=== PATIENT | female | born 1940 | race Caucasian/White ===

== ENCOUNTER → 2021-10-24 | Outpatient (CLI) | payer OTHER ==
[~2021-10-24] MED LIST: ADVAIR 500/501 EA INH; ALBUTEROL0.63 MG/3; CEFDINIR300 MG PO; FAMOTIDINE20 MG PO; FISH OIL PO; LEVOTHYROXINE75 MCG PO; METRONIDAZOLE500 MG PO; NEXIUM PO; TOBRADEX EYE DRO5 ML OU; TRELEGY ELLIPT1 EACH INH
== END ==
LOC: RAD 08:58
PROVIDERS: ATTEND Internal Medicine Pulmonary Disease
DX: R06.02 Shortness of breath (principal)
CPT/HCPCS: 71046

== ENCOUNTER 2021-11-03 05:19 | Observation (INO) | payer OTHER ==
[~2021-11-03] VITALS: Ht 162.6 cm; Wt 61.2 kg
[2021-11-03] MEDS ORDERED: CELECOXIB 200 MG CAP ONE (06:15)
[2021-11-03] MEDS ORDERED: DEXAMETHASONE SOD PHOS 10 MG/1 ML VIAL ONE (06:15)
[2021-11-03] MEDS ORDERED: GABAPENTIN 300 MG CAP ONE (06:15)
[2021-11-03] MEDS ORDERED: SODIUM CHLORIDE 0.9% 500ML 500 ML ONE (06:24)
[2021-11-03] MEDS ORDERED: Vancomycin IV 1,000 MG ONE (06:24)
[2021-11-03] MEDS ORDERED: TRANEXAMIC ACID 20 ML ONE (06:25)
[2021-11-03] MEDS ORDERED: ROPIVACAINE 246.25 MG, EPINEPHRINE HCL 1:1000 1ML 0.5 MG, CLONIDINE HCL 0.08 MG, KETORO... INJ ONE ×5 (07:30)
[2021-11-03] MEDS ORDERED: DOCUSATE SODIUM 100 MG CAP PO PRN (08:15)
[2021-11-03] MEDS ORDERED: KETOROLAC TROMETHAMINE 30 MG/ML VIAL IV PRN (08:15)
[2021-11-03] MEDS ORDERED: DIPHENHYDRAMINE HCL INJ 50 MG/ML VIAL IV PRN (08:15)
[2021-11-03] MEDS ORDERED: HYDROCODONE/APAP 7.5MG-325MG 1 EA TAB PO PRN (08:15)
[2021-11-03] MEDS ORDERED: ONDANSETRON HCL INJ 2MG/ML 2ML 2 MG/ML VIAL IV PRN (08:15)
[2021-11-03] MEDS ORDERED: HYDROCODONE/APAP 5MG-325MG TAB PO PRN (08:15)
[2021-11-03] MEDS ORDERED: ACETAMINOPHEN 650 MG SUPP PR PRN (08:15)
[2021-11-03] MEDS ORDERED: Morphine 2mg Syringe 2 MG/ML SYR ONE (08:54)
[2021-11-03] MEDS: CELECOXIB 200 MG CAP PO SCH ×2 (09:00→16:51)
[2021-11-03] MEDS ORDERED: FENTANYL CITRATE/PF 100MCG/2 ML INJ ONE ×2 (09:20→13:17)
[2021-11-03] MEDS ORDERED: POVIDONE IODINE 0.05% 0.05 % ML PO ONE (12:53)
[2021-11-03] MEDS ORDERED: SEVOFLURANE INHAL SOLN 250 ML PEN BTL ONE (12:53)
[2021-11-03] MEDS ORDERED: ACETAMINOPHEN 1000 MG/100 ML IV ONE (12:53)
[2021-11-03] MEDS ORDERED: ONDANSETRON HCL INJ 2MG/ML 2ML 2 MG/ML VIAL ONE (12:53)
[2021-11-03] MEDS ORDERED: LIDOCAINE HCL 2% LOCAL INJ 5 ML SDV VIAL INJ ONE (12:53)
[2021-11-03] MEDS ORDERED: PROPOFOL IV EMULSION 10 MG/ML 20 ML VIAL ONE (12:53)
[2021-11-03] MEDS ORDERED: ROPIVACAINE 0.5% 5 MG/ML 30 ML SDV ONE (13:02)
[2021-11-03] MEDS ORDERED: MIDAZOLAM HCL 2 MG/2 ML VIAL ONE (13:17)
[2021-11-03] MEDS ORDERED: SODIUM CHLORIDE 0.9% 1000ML 1,000 ML IV SCH (13:45)
[2021-11-03 14:20] VITALS: BP 102/87
[2021-11-03 14:58] VITALS: BP 102/87
[2021-11-03 14:59] VITALS: BP 102/87
[2021-11-03] MEDS ORDERED: XALATAN2.5 ML OU (15:14)
[2021-11-03 16:23] VITALS: BP 120/64
[2021-11-03] MEDS ORDERED: ASPIRIN 325 MG TAB PO SCH (17:00)
[2021-11-03] MEDS ORDERED: IBUPROFEN800 MG PO (17:13)
[2021-11-03] MEDS ORDERED: ASPIRIN81 MG PO (17:13)
[2021-11-03] MEDS ORDERED: ZOLPIDEM TARTRATE 5 MG TAB PO PRN (21:00)
[2021-11-04] MEDS ORDERED: ACETAMINOPHEN 1000 MG/100 ML IV PRN (08:15)
== END 2021-11-03 18:58 | disposition home or self-care (01) ==
LOC: OR 05:19 → PACU V 08:39 → MED/SURG2 14:09
PROVIDERS: ADMIT Specialist; ATTEND Specialist
DX: M17.11 Unilateral primary osteoarthritis, right knee (principal); Z01.812 Encounter for preprocedural laboratory examination; Z20.822 Contact with and (suspected) exposure to COVID-19; E03.9 Hypothyroidism, unspecified; K21.9 Gastro-esophageal reflux disease without esophagitis; J45.20 Mild intermittent asthma, uncomplicated
CPT/HCPCS: 0223U; 36415; 86850; 86900; 86920; 93005; 94799; C1713; C1776; G0378; J0171; J0690; J1100; J1885; J2001; J2250; J2270; J2405; J2795; J3010; J3370; J7030; J7040